=== PATIENT | male | born 1980 | race Two or more races ===

== ENCOUNTER 2019-10-31 15:41 | Emergency (ER) | payer MEDICAID ==
[~2019-10-31] VITALS: Ht 170.2 cm; Wt 90.7 kg
--- NOTE | 2019-10-31 16:01 | NUR ---
ED Nurse Note: Pt walked into ED c/o right foot pain x 3 days. Stated a big plate fell on his right foot. Reports foot swelling and redness. Pt able to walk with steady gait. ERMD at bedside.
--- NOTE | 2019-10-31 16:16 | Emergency Room Report ---
History of Present Illness General Chief Complaint: Lower Extremity Injury Source: Patient Present Illness HPI Disclaimer: Please note that this report is being documented using [employer] technology. This can lead to erroneous entry secondary to incorrect interpretation by the dictating instrument. HPI: 39-year-old male no past medical history presented with right foot pain. He states something struck his foot approximately 1 week ago. But then developed inflammation of the foot over the last 3 days with pain and redness. Denies fevers nausea vomiting cough. He is ambulatory with some pain. Pain is currently 8 out of 10 nonradiating worse with palpation. PMH: Patient denies any past medical history PSH: Reviewed Social Hx: Occasional drinking denies illicit drug use Allergies: Coded Allergies: No Known Allergies (Unverified , 10/31/19) COVID-19 Screening Contact w/high risk pt: No Recent Travel to affected area: No Experienced COVID-19 symptoms?: No COVID-19 Testing performed GRANITE POLISHER: No Patient History Reviewed Nursing Documentation: PMH: Agreed; PSxH: Agreed Nursing Documentation-PMH Past Medical History: No Stated History Review of Systems All Other Systems: negative except mentioned in HPI Physical Exam Vital Signs Date Time Temp Pulse Resp B/P (MAP) Pulse Ox O2 Delivery O2 Flow Rate FiO2 10/31/19 15:59 98.4 110 20 128/87 (101) 97 Room Air Sp02 EP Interpretation: reviewed, normal General Appearance: well appearing, no apparent distress Head: normocephalic, atraumatic Eyes: bilateral eye PERRL, bilateral eye EOMI ENT: hearing grossly normal, moist mucus membranes Neck: full range of motion, supple Respiratory: lungs clear, normal breath sounds, no rhonchi, no respiratory distress, no retraction, no wheezing Cardiovascular #1: normal peripheral pulses, regular rate, rhythm, no murmur Gastrointestinal: non tender, soft, non-distended, no guarding Musculoskeletal: other - Right foot 2+ pulses, erythema noted of the dorsum of the foot mildly tender without obvious deformity. Sensation intact Neurologic: alert, oriented x3, no focal defects Skin: normal color, warm/dry Medical Decision Making ER Course Differential diagnosis included but not limited to cellulitis, contusion, fracture to name a few. On exam patient's foot was erythematous and warm concerning for cellulitis. His trauma occurred 1 week ago. X-ray obtained. X- ray did not demonstrate any acute fracture or dislocation. Patient will be discharged with p.o. antibiotic, analgesics and anti-inflammatories instructions to rest and ice the foot and elevate at home. Stable for discharge with return precautions. Other X-Ray Diagnostic Results Other X-Ray Diagnostic Results : X-Ray ordered: right foot # of Views/Limited Vs Complete: 3 View Indication: Pain Interpretation: no dislocation, no fractures Impression: No acute disease Electronically Signed by: Alec Abdul MD Last Vital Signs Date Time Temp Pulse Resp B/P (MAP) Pulse Ox O2 Delivery O2 Flow Rate FiO2 10/31/19 15:59 98.4 110 20 128/87 (101) 97 Room Air Disposition: HOME, SELF-CARE Condition: Stable Scripts Ibuprofen* (MOTRIN*) 600 Mg Tablet 600 MG ORAL Q6H PRN for For Pain, #30 TAB 0 Refills Prov: Alec Abdul M.D. 10/31/19 Cephalexin* (KEFLEX*) 500 Mg Capsule 500 MG ORAL EVERY 6 HOURS for 7 Days, CAP Prov: Alec Abdul M.D. 10/31/19 Referrals: NOT CHOSEN RONALD/,REFERRING (PCP) Alec Abdul M.D. Oct 31, 2019 16:15
--- NOTE | 2019-10-31 16:36 | NUR ---
ED Nurse Note: Xray at bedside.
[2019-10-31] MEDS ORDERED: CEPHALEXIN500 MG ORAL (16:57)
[2019-10-31] MEDS ORDERED: IBUPROFEN600 M1 ORAL (16:57)
[2019-10-31] MEDS ORDERED: Cephalexin 500mg cap ONE (17:00)
[2019-10-31] MEDS ORDERED: Cephalexin 500mg cap ORAL ONE (17:00)
[2019-10-31 17:02] VITALS: BP 122/69
--- NOTE | 2019-10-31 17:02 | Diagnostic Imaging Report ---
Indication: Reason For Exam: PAIN Technique: 3 views right foot Comparison: none Findings: Bony alignment is normal. No acute fractures. No dislocations. The joint spaces are preserved. There is a small plantar spur Impression: No acute process
--- NOTE | 2019-10-31 17:02 | NUR ---
ED Nurse Note: Pt cleared by ERMD for discharge. DC instructions/prescription was given and explained to pt and verbalized understanding of teachings. All medical deviecs such as ID band removed. Pt is AAO x4, ambulatory and left with all personal belongings.
== END 2019-10-31 17:02 | disposition home or self-care (01) ==
LOC: EMR 16:04
DX: M25.571 Pain in right ankle and joints of right foot (principal); M77.9 Enthesopathy, unspecified
CPT/HCPCS: 73630; Z7502; 99283

== ENCOUNTER 2020-05-28 07:17 | Emergency (ER) | payer MEDICAID ==
[~2020-05-28] VITALS: Ht 172.7 cm; Wt 90.7 kg
[~2020-05-28 07:17] MED LIST: CEPHALEXIN500 MG ORAL; IBUPROFEN600 M1 ORAL
--- NOTE | 2020-05-28 07:32 | Emergency Room Report ---
History of Present Illness General Chief Complaint: Back Pain-No Injury Source: Patient Present Illness HPI Patient is a 39-year-old male presents for increased right-sided shoulder pain. Reports having pain to the posterior the right shoulder. Onset after waking up this morning. Denies any recent trauma. Patient is right-hand dominant. Works as a diesel mechanic construction. Pain is worse with movement. Had been building a metal shed yesterday. Denies any fever. Pain is sharp in nature. Denies any other locations of pain. No back pain. Allergies: Coded Allergies: No Known Allergies (Unverified , 10/31/19) COVID-19 Screening Contact w/high risk pt: No Recent Travel to affected area: No Experienced COVID-19 symptoms?: No COVID-19 Testing performed SPORTS MEDICINE COORDINATOR: No Patient History Past Medical History: see triage record Reviewed Nursing Documentation: PMH: Agreed; PSxH: Agreed Review of Systems All Other Systems: negative except mentioned in HPI Physical Exam Vital Signs Date Time Temp Pulse Resp B/P (MAP) Pulse Ox O2 Delivery O2 Flow Rate FiO2 05/28/20 07:20 98.1 74 18 194/113 (140) 96 Room Air General Appearance: well appearing, no apparent distress, alert, GCS 15 Head: normocephalic, atraumatic ENT: hearing grossly normal, normal voice Neck: full range of motion, supple Respiratory: no respiratory distress, speaking full sentences Musculoskeletal: decreased range of mation - Decreased range of motion in abduction to the right shoulder. Tenderness to the supraspinatus tendon. Neurologic: normal gait Psychiatric: mood/affect normal Skin: no rash Medical Decision Making Diagnostic Impression: Primary Impression: Shoulder pain, right ER Course Patient presented for shoulder pain. Differential diagnosis include was not limited to fracture, dislocation, arthritis, rotator cuff urea, bursitis. X-ray imaging was ordered due to patient's recent onset of pain. Patient has benign abdominal exam. Does not have any tenderness to the spine.X-ray imaging read by radiologist no acute pathology patient shoulder pain appears to be muscular based. He was given Toradol for pain with improvement. Was placed in a sling. He is advised to follow-up with primary care physician for recheck. He is to return if worse. This medical record is generated with [employer] plug shaper hand software. There may be some plug shaper hand discrepancies related to use of this software Last Vital Signs Date Time Temp Pulse Resp B/P (MAP) Pulse Ox O2 Delivery O2 Flow Rate FiO2 05/28/20 07:20 98.1 74 18 194/113 (140) 96 Room Air Status: improved Scripts Ibuprofen* (MOTRIN*) 600 Mg Tablet 600 MG ORAL Q8H PRN for FOR PAIN, #20 TAB 0 Refills Prov: Baldemar Fernandez MD 05/28/20 Baldemar Fernandez MD May 28, 2020 07:32
[2020-05-28] MEDS: Ketorolac 60mg Inj IM ONE (07:44)
[2020-05-28 07:59] VITALS: BP 194/113
--- NOTE | 2020-05-28 08:01 | NUR ---
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
[2020-05-28] MEDS ORDERED: IBUPROFEN600 M1 ORAL (08:59)
[2020-05-28 09:00] VITALS: BP 194/113
--- NOTE | 2020-05-28 09:00 | NUR ---
ED Nurse Note: Pt cleared by health care Provider for discharge. DC instructions/prescription was given and explained to pt and verbalized understanding of teachings. All medical deviecs such as ID band removed. Pt is AAO x4, ambulatory and left with all personal belongings.
--- NOTE | 2020-05-28 11:31 | Diagnostic Imaging Report ---
Indication: Right shoulder pain Technique: 2 views of the right shoulder Comparison: none Findings: Exam is very limited. Per technologist, it was not possible to obtain an external rotation view. Internal rotation view is also not optimally position. Impression: Very limited exam. No gross acute abnormality
== END 2020-05-28 09:00 | disposition home or self-care (01) ==
LOC: EMR 07:43
DX: M25.511 Pain in right shoulder (principal)
CPT/HCPCS: 73020; 96372; Z7502; 99283